=== PATIENT | male | born 2000 | race Caucasian/White ===

== ENCOUNTER → 2024-05-02 | Outpatient (CLI) | payer OTHER ==
--- NOTE | 2024-05-02 12:32 | XR ---
EXAMINATION TYPE: XR humerus RT, XR wrist complete RT, XR hand complete RT DATE OF EXAM: 05/02/2024 12:24 PM INDICATION: Patient age:Male; 23 years old; Reason for study: S60.211A S60.221A S40.021A Contusions Rt wrist hand; PHH. pain COMPARISON: None TECHNIQUE: The right humerus was examined in AP, internally rotated and axillary projections. The ri ght hand was examined in frontal, oblique, lateral projections. The right wrist was examined in PA, o blique, lateral, and ulnar flexion projections. FINDINGS: No evidence of acute osseous pathology, joint dislocation, or soft tissue swelling. No osse ous erosions. No radiopaque foreign bodies. The remaining portions of the visualized chest are unrema rkable. IMPRESSION: No acute osseous pathology. [facility], , 05/02/2024 12:29 PM
== END | disposition home or self-care (01) ==
LOC: RADXRMAIN 12:04
PROVIDERS: ATTEND Emergency Medicine
DX: S60.211A Contusion of right wrist, initial encounter (principal); S60.221A Contusion of right hand, initial encounter; S40.021A Contusion of right upper arm, initial encounter; X58.XXXA Exposure to other specified factors, initial encounter

== ENCOUNTER → 2024-05-03 | Outpatient (CLI) | payer OTHER ==
--- NOTE | 2024-05-03 15:08 | CT ---
EXAMINATION TYPE: CT cervical spine wo con DATE OF EXAM: 05/03/2024 COMPARISON: None CLINICAL INDICATION: Male, 23 years old with history of S13.4XXD SPRAIN OF LIGAMENTS OF CERVICAL SPIN E, [place]; PHH, neck pain after slip and fall yesterday TECHNIQUE: CT scan of the cervical spine is obtained without contrast, axial images are obtained, sa gittal and coronal reformatted images are also reviewed. CT DLP: [address] CTDI: mGy Automated exposure control for dose reduction was used. Findings: The craniovertebral junction relationships and prevertebral soft tissues are normal. The cervical vertebral segments are normal in height and alignment and there is no fracture or sublux ation. There is no significant degenerative disc disease. The disc spaces are well preserved in height. Ther e is no spondylosis. The facet joints and uncovertebral joints are intact. There is no bony encroachment of the cervical canal or neural foramina. IMPRESSION: 1. No evidence of acute trauma. 2. No significant amount seen. [facility], Workstation: [facility], 05/03/2024 3:05 PM
== END | disposition home or self-care (01) ==
LOC: RADCTMAIN 13:50
PROVIDERS: ATTEND Emergency Medicine
DX: S13.4XXD Sprain of ligaments of cervical spine, subsequent encounter (principal)
CPT/HCPCS: 72125

== ENCOUNTER → 2024-05-10 | Outpatient (CLI) | payer OTHER ==
--- NOTE | 2024-05-10 15:05 | XR ---
EXAMINATION TYPE: XR wrist complete RT DATE OF EXAM: 05/10/2024 2:55 PM COMPARISON: 05/02/2024 CLINICAL INDICATION: Male, 23 years old with history of S60.211A, pain TECHNIQUE: 4 view(s) obtained. FINDINGS: No acute or subacute fracture identified. Joint spaces are preserved. Soft tissues appear normal. Sca phoid appears intact. If additional evaluation for soft tissues would be of benefit, MRI could be performed. IMPRESSION: 1. No acute or subacute osseous abnormality. 2. If additional evaluation for soft tissues would be of benefit, MRI could be performed. [facility], , 05/10/2024 3:03 PM
== END | disposition home or self-care (01) ==
LOC: RADXRMAIN 14:36
PROVIDERS: ATTEND Emergency Medicine
DX: S60.211A Contusion of right wrist, initial encounter (principal)